=== PATIENT | female | born 1980 | race African-American/Black ===

== ENCOUNTER 2018-07-16 18:22 | Emergency (ER) | payer SELFPAY ==
[~2018-07-16] VITALS: Ht 165.1 cm; Wt 96.6 kg
[2018-07-16 18:39] VITALS: BP 148/88
--- NOTE | 2018-07-16 18:44 | NUR ---
URINE CUP HANDED TO PT FOR SAMPLE
--- NOTE | 2018-07-16 18:45 | NUR ---
38 Y FEMALE BIB SELF C/O CONSTANT PALPITION X YESTERDAY. WENT TO URGENT [facility]ARE YESTERDAY AND GIVEN RX HCTZ, ADDED TO HER MEDS LIST. PT STATES SHE WAS TACHY YESTERDAY AT URGENT CARE AND HAD A HIGH BP. DENIES N/V/D. PT STATES SHE FEELS LIKE SHE STILL HAS A FAST HEART RATE. HR 118 AT THIS TIME. BP 134/75. [id number]. CLEAR SPEECH. BED IS DOWN, LOCKED, BED RAIL X 1, ERMD NOTIFIED. HX--HTN RX---MUCINEX, ZYRTEC, NORVASC, HCTZ
--- NOTE | 2018-07-16 18:59 | NUR ---
ROB EMT AT BEDSIDE FOR EKG
--- NOTE | 2018-07-16 19:00 | NUR ---
PT UNABLE TO GIVE URINE AT THIS TIME
--- NOTE | 2018-07-16 19:18 | NUR ---
REPORT GIVEN TO NICA FREY
--- NOTE | 2018-07-16 19:20 | NUR ---
WATER AND COMFORT MEASURES PROVIDED PER PT REQUEST.
--- NOTE | 2018-07-16 19:56 | NUR ---
Dr. García evaluating patient at bedside.
[2018-07-16] MEDS ORDERED: NACL 0.9% 1,000 ML IV ONE ×2 (20:00→21:10)
[2018-07-16 20:15] LABS: BASOPHILS % (AUTO) 0.6 % (0.0-2.0); EOSINOPHILS # (AUTO) 0.1 K/uL (0-0.4); EOSINOPHILS % (AUTO) 1.6 % (0.0-4.0); HEMATOCRIT 33.6 % (36-48); MEAN CORPUSCULAR HEMOGLOBIN 27 pg (27-31); MEAN CORPUSCULAR HGB CONC 33 g/dL (33-37); MEAN CORPUSCULAR VOLUME 83.2 fL (80-94); MONOCYTES # (AUTO) 0.7 K/uL (0.8-1.0); MONOCYTES % (AUTO) 8.6 % (1.7-9.3); NEUTROPHILS # (AUTO) 5.4 K/uL (1.8-7.7); NEUTROPHILS % (AUTO) 65.2 % (42.2-75.2); PLATELET COUNT (AUTO) 273 K/uL (140-450); RED BLOOD CELL COUNT(AUTO) 4.03 MIL/uL (4.20-5.40); RED CELL DISTRIBUTION WIDTH 15.6 % (11.6-13.7); WHITE BLOOD COUNT (AUTO) 8.3 K/uL (4.8-10.8)
[2018-07-16 20:17] LABS: ANION GAP 9.6 (8-16); CARBON DIOXIDE 29.6 mmol/L (21-32); CREATININE 1.1 mg/dL (0.6-1.3); POTASSIUM 3.2 mmol/L (3.5-5.1)
[2018-07-16 20:32] LABS: ALBUMIN 3.7 g/dL (3.4-5.0); FREE T4 (FREE THYROXINE) 0.92 ng/dL (0.76-1.46); THYROID STIMULATING HORMONE 1.8 uIU/mL (0.34-3.74); TOTAL BILIRUBIN 0.3 mg/dL (0.0-1.0)
[2018-07-16 23:05] VITALS: BP 113/75
--- NOTE | 2018-07-16 23:05 | NUR ---
DISCHARGE PAPERWORK GIVEN. KRISTENY AT 110. PT STATES FEELING BETTER. A&OX4. 0/10 PAIN. NO SOB/DYSPNEA. INSTRUCTED TO F/U WITCH PCP AND WHEN TO RETURN TO ED. PT VERBALIZED UNDERSTANDING OF DC INSTRUCTIONS. ALL QUESTIONS ANSWERED.
== END 2018-07-16 23:05 | disposition home or self-care (01) ==
LOC: MED 18:22
DX: R00.0 Tachycardia, unspecified (principal); I10 Essential (primary) hypertension; Z88.1 Allergy status to other antibiotic agents; Z88.2 Allergy status to sulfonamides
CPT/HCPCS: 36415; 80053; 81002; 81025; 84439; 84443; 84484; 85025; 85379; 93005; 99284; J7030